=== PATIENT | male | born 1945 | race Hispanic/Latino ===

== ENCOUNTER 2020-01-21 14:05 | Emergency (ER) | payer OTHER, MEDICARE | END 2020-01-21 15:35 | disposition home or self-care (01) | LOC: EDH 14:05 | DX: K62.5 Hemorrhage of anus and rectum (principal); K59.00 Constipation, unspecified; R07.89 Other chest pain; I10 Essential (primary) hypertension; E11.9 Type 2 diabetes mellitus without complications | CPT/HCPCS: 93005 ==

== ENCOUNTER → 2020-09-30 | Outpatient (CLI) | payer OTHER | END | disposition home or self-care (01) | LOC: SHCH 08:00 | PROVIDERS: ATTEND Internal Medicine Cardiovascular Disease | DX: I48.0 Paroxysmal atrial fibrillation (principal); I50.22 Chronic systolic (congestive) heart failure; D68.59 Other primary thrombophilia | CPT/HCPCS: 93306; 93356 ==